=== PATIENT | female | born 1985 | race American Indian/Alaskan Native ===

== ENCOUNTER 2018-05-29 05:37 | Day surgery (SDC) | payer MEDICAID ==
[~2018-05-29 05:37] MED LIST: DEMEROL IV PRN; DILAUDID IV PRN; LACTATED RINGERS 1,000 ML IV SCH; MARCAINE 0.5% INFILTRATI ONE; VERSED IV NR; ZOFRAN IV PRN
[2018-05-29] MEDS ORDERED: MARCAINE 0.5% INFILTRATI ONE (06:31)
--- NOTE | 2018-05-29 06:59 | Anesthesia Consultation ---
Anesthesia Consult and Med Hx Date of service: 05/29/18 - Airway Anesthetic Teeth Evaluation: Good ROM Head & Neck: Adequate Mental/Hyoid Distance: Adequate Mallampati Class: Class I Intubation Access Assessment: Good - Pulmonary Exam CTA: Yes - Cardiac Exam Cardiac Exam: RRR - Pre-Operative Health Status ASA Pre-Surgery Classification: ASA2 Proposed Anesthetic Plan: General (hx of heart murmur as child asymptomatic currently) - Pulmonary Hx Smoking: No Hx Asthma: No COPD: No Hx Pneumonia: No - Cardiovascular System Hx Hypertension: No Hx Heart Murmur: Yes (As infant-resolved) - Central Nervous System Hx Seizures: No CVA: No Hx Psychiatric Problems: No - Gastrointestinal Hx Gastroesophageal Reflux Disease: No - Endocrine Hx Renal Disease: No Hx End Stage Renal Disease: No Hx Hypothyroidism: No Hx Hyperthyroidism: No - Hematic Hx Anemia: No Hx Sickle Cell Disease: No - Other Systems Hx Alcohol Use: No Hx Cancer: No
--- NOTE | 2018-05-29 06:59 | Anesthesia Day of Surgery ---
Anesthesia Day of Surgery - Day of Surgery Patient Examined: Yes Patient H&P Reviewed: Yes Patient is NPO: Yes
--- NOTE | 2018-05-29 07:26 | Short Stay Summary ---
Short Stay Documentation Date of service: 05/29/18 Narrative H&P: Pt is a 33yo BF s/p 03/31/18 presents for permanent sterilization - History Principal diagnosis: Desires permanent sterilization H&P: obtained from office Past Medical History: No medical history Past Surgical History: Other (Laparoscopic left salpingectomy due to ectopic ; Right foot surgery) Social history: no significant social history, - Allergies and Medications Current Medications: Allergies No Known Allergies Allergy (Unverified 05/22/18 10:03) Home Medications Medication Instructions Recorded Confirmed Last Taken Type Multivitamin [Multiple Vitamins] 1 each PO DAILY 05/22/18 05/22/18 Unknown History Active Medications Hydromorphone HCl (Dilaudid) 0.5 mg IV Q10MIN PRN PRN Reason: Pain , Severe (7-10) Stop: 05/29/18 16:05 Lactated Ringer's (Lactated Ringers) 1,000 mls @ 100 mls/hr IV DIRECT FREEMAN Cefazolin Sodium (Ancef/Sterile Water 2 Gm/20 Ml) 2 gm in 20 mls @ 80 mls/hr IV PREOP NR; Protocol Meperidine HCl (Demerol) 25 mg IV ONCE PRN PRN Reason: Shivering Stop: 05/29/18 16:03 Midazolam HCl (Versed) 2 mg IV PREOP NR Stop: 05/29/18 23:59 Ondansetron HCl (Zofran) 4 mg IV ONCE PRN PRN Reason: Nausea And Vomiting Stop: 05/29/18 16:05 - Physical exam General appearance: no acute distress Integumentary: no rash HEENT: Atraumatic Lungs: Clear to auscultation Breasts: deferred Heart: Regular rate Gastrointestinal: normal Female Genitourinary: deferred Rectal Exam: deferred Extremities: no ischemia, No edema Neurological: Normal gait, Normal speech - Brief post op/procedure progress note Date of procedure: 05/29/18 Pre-op diagnosis: Desires permanent sterilization Post-op diagnosis: same Procedure: Laparoscopic right tubal ligation Anesthesia: GETA Findings: A normal uterus. Normal right fallopian tube and ovary. Absent left fallopian tube with normal left ovary. Surgeon: NEHEMIAS LOGAN Estimated blood loss: minimal Pathology: none Condition: stable - Hospital course Hospital course: Unremarkable. - Disposition Condition at discharge: Good Disposition: DC-01 TO HOME OR SELFCARE - Discharge Diagnoses (1) Encounter for sterilization Status: Resolved Short Stay Discharge Plan Activity: no restrictions Diet: regular Wound: open to air, keep clean and dry Follow up with: NEHEMIAS LOGAN MD [Primary Care Provider] - 14 Days Prescriptions: HYDROcodone/APAP 5-325 [[place] 5/325] 1 each PO Q6HR PRN #20 tablet PRN Reason: Pain
[2018-05-29] MEDS ORDERED: DIPRIVAN 10 MG/ML IV ONE (07:31)
[2018-05-29] MEDS ORDERED: ZOFRAN ONE (07:32)
[2018-05-29] MEDS ORDERED: DECADRON ONE (07:32)
[2018-05-29] MEDS ORDERED: SUBLIMAZE ONE (07:32)
[2018-05-29] MEDS ORDERED: XYLOCAINE MPF 2% ONE (07:32)
[2018-05-29] MEDS ORDERED: ZEMURON IV ONE (07:33)
[2018-05-29] MEDS ORDERED: TORADOL ONE (07:36)
[2018-05-29] MEDS ORDERED: ANCEF/STERILE WATER 2 GM/20 ML 2 GM/20 ML SYRINGE IV NR (08:00)
[2018-05-29] MEDS ORDERED: BLOXIVERZ ONE (08:17)
[2018-05-29] MEDS ORDERED: ROBINUL ONE (08:17)
--- NOTE | 2018-05-29 08:32 | Operative Report ---
Operative Report Operative Report: PREOPERATIVE DIAGNOSIS: Desires permanent sterilization POSTOPERATIVE DIAGNOSIS: Same OPERATIVE PROCEDURE: Laparoscopic right tubal ligation. SURGEON: Endy Mcintosh MD ANESTHESIA: Gen. endotracheal intubation ANESTHESIOLOGIST: Dr. Briones ESTIMATED BLOOD LOSS: Minimal FINDINGS: A normal uterus with normal right fallopian tube and ovary. Absent left fallopian tube and normal left ovary. COMPLICATIONS: None COUNTS: Correct x3. PROCEDURE: After the patient was correctly identified and after general anesthesia was administered, the patient was prepped and draped in usual sterile fashion and placed in dorsal lithotomy position. First, the bladder was emptied using a straight catheter. Next, a speculum was placed in the vaginal vault and the anterior lip of the cervix was grasped using a single-tooth tenaculum. The uterine manipulator was then placed and the tenaculum and speculum were removed. Attention was then turned to the abdomen where first a periumbilical incision was made using a skin knife, and the Optiview trocar was inserted under direct visualization. After an adequate amount of abdominal insufflation, visualization of the pelvic organs found the uterus to be normal, and the right tube and ovary was normal, the left fallopian tube was absent. Next, the right fallopian tube was grasped using the Kyrie device, and after identifying the fimbriated end of the right tube, this tube was cauterized in 3 continuous [address] along the proximal portion of the right tube. At this point, the procedure was then considered complete. All instruments were removed from the abdomen. The abdomen was deflated and the periumbilical incision was closed using 0 Vicryl suture in a [id number] configuration on the fascia, followed by 4-0 Monocryl suture in sub-cuticular fashion on the skin. The incision was also infiltrated using 0.5% Marcaine solution. The uterine manipulator was removed. The patient tolerated the procedure well and was transferred to recovery room stable condition.
--- NOTE | 2018-05-29 09:48 | Post Anesthesia Evaluation ---
- Post Anesthesia Evaluation Patient Participated: Yes Airway Patent: Yes Stable Respiratory Function: Yes Nausea/Vomiting: No Temp > 96.8F: Yes Pain Manageable: Yes Adequeate Hydration: Yes Anesthesia Complications: No
[2018-05-29 09:59] VITALS: BP 111/69
== END 2018-05-29 11:20 | disposition home or self-care (01) ==
LOC: OR 05:37
PROVIDERS: ATTEND Obstetrics & Gynecology
DX: Z30.2 Encounter for sterilization (principal); Z79.899 Other long term (current) drug therapy; Z98.890 Other specified postprocedural states
CPT/HCPCS: 58670; 81025; 82803; J1100; J1885; J2405; J2704; J2710; J3010; J7120